=== PATIENT | female | born 1955 | race Caucasian/White ===

== ENCOUNTER 2023-03-21 07:05 | Outpatient (OUT) | payer OTHER, SELFPAY ==
[2023-03-21 07:49] LABS: Basophils Absolute Auto 0.1 10^3/uL (0.0-0.1); Basophils Percent Auto 1.4 % (0.2-2.0); Eosinophils Absolute Auto 0.2 10^3/uL (0.0-0.7); Eosinophils Percent Auto 4.2 % (0.9-7.0); Hematocrit 41.6 % (36.0-48.0); Immature Granulocytes Abs Auto 0.02 10^3/uL (0.00-0.03); Immature Granulocytes Pct Auto 0.4 % (0.0-0.5); Lymphocytes Absolute Auto 1.3 10^3/uL (1.2-3.8); Lymphocytes Percent Auto 26.7 % (20.5-60.0); Mean Corpuscular HGB Conc 33.7 g/dL (29.9-35.2); Mean Platelet Volume 9.4 fL (9.5-13.5); Monocytes Absolute Auto 0.5 10^3/uL (0.3-0.8); Monocytes Percent Auto 10.2 % (1.7-12.0); Neutrophils Absolute Auto 2.8 10^3/uL (1.4-6.5); Neutrophils Percent Auto 57.1 % (43.0-75.0); Platelet Count 211 10^3/uL (150-450); Red Blood Count 4.52 10^6/uL (4.20-5.40); Red Cell Distribution Width 13.4 % (11.0-15.0)
[2023-03-21 08:21] LABS: Microalbumin Urine Random <1.3 mg/dL (<=30.0)
[2023-03-21 08:23] LABS: Estimated Average Glucose 128 mg/dL; Glycohemoglobin A1C 6.1 % (4.5-6.2)
[2023-03-21 10:14] LABS: Alanine Aminotransferase 32 U/L (14-59); Albumin Globulin Ratio 1.1; Albumin Level 3.9 g/dL (3.4-5.0); Alkaline Phosphatase 102 U/L (46-116); Anion Gap 12.4; Aspartate Amino Transferase 17 U/L (15-37); BUN Creatinine Ratio 28.6; Bilirubin Total 0.6 mg/dL (0.2-1.0); Calcium 9.6 mg/dL (8.5-10.1); Carbon Dioxide 29.5 mmol/L (21.0-32.0); Chloride 103 mmol/L (98-107); Chol HDL Ratio 3.8; Cholesterol 252 mg/dL (<=200); Estimated GFR (African America >60 (>=60); Estimated GFR (Non-African Ame >60 (>=60); Globulin 3.5 g/dL; Glucose 122 mg/dL (74-106); HDL Cholesterol 66 mg/dL (40-60); Potassium 3.9 mmol/L (3.5-5.1); Sodium 141 mmol/L (136-145); Total Protein 7.4 g/dL (6.4-8.2); Triglycerides 127 mg/dL (<=150); VLDL CHOLESTEROL 25.4 mg/dL
== END 2023-03-21 07:06 | disposition home or self-care (01) ==
LOC: LAB 07:11
PROVIDERS: PCP Internal Medicine; Visit Provider Internal Medicine
DX: E11.618 Type 2 diabetes mellitus with other diabetic arthropathy (principal); E78.00 Pure hypercholesterolemia, unspecified; D68.59 Other primary thrombophilia
CPT/HCPCS: 36415; 80053; 80061; 82043; 83036; 85025

== ENCOUNTER 2023-09-21 08:47 | Outpatient (OUT) | payer OTHER, SELFPAY ==
[2023-09-21 09:14] LABS: Creatinine Urine Random 89.32 mg/dL (20.00-300.00); Microalbum Creatinine Ratio Ur 14.5 mg/g (0.0-29.9); Microalbumin Urine Random <1.3 mg/dL (<=30.0)
[2023-09-21 09:20] LABS: Basophils Absolute Auto 0.1 10^3/uL (0.0-0.1); Basophils Percent Auto 1.4 % (0.2-2.0); Eosinophils Absolute Auto 0.2 10^3/uL (0.0-0.7); Eosinophils Percent Auto 3.6 % (0.9-7.0); Hematocrit 37.2 % (36.0-48.0); Hemoglobin 12.3 g/dL (12.0-16.0); Immature Granulocytes Abs Auto 0.02 10^3/uL (0.00-0.03); Immature Granulocytes Pct Auto 0.4 % (0.0-0.5); Lymphocytes Absolute Auto 1.6 10^3/uL (1.2-3.8); Lymphocytes Percent Auto 29.2 % (20.5-60.0); Mean Corpuscular HGB Conc 33.1 g/dL (29.9-35.2); Mean Corpuscular Hemoglobin 30.8 pg (26.7-34.0); Mean Platelet Volume 9.6 fL (9.5-13.5); Monocytes Absolute Auto 0.6 10^3/uL (0.3-0.8); Monocytes Percent Auto 10.6 % (1.7-12.0); Neutrophils Absolute Auto 3.1 10^3/uL (1.4-6.5); Neutrophils Percent Auto 54.8 % (43.0-75.0); Platelet Count 222 10^3/uL (150-450); Red Cell Distribution Width 13.4 % (11.0-15.0); White Blood Count 5.6 10^3/uL (4.0-11.0)
[2023-09-21 09:53] LABS: Alanine Aminotransferase 33 U/L (14-59); Albumin Globulin Ratio 1.1; Albumin Level 3.7 g/dL (3.4-5.0); Alkaline Phosphatase 113 U/L (46-116); Anion Gap 10.5; Aspartate Amino Transferase 17 U/L (15-37); BUN Creatinine Ratio 21.2; Bilirubin Total 0.6 mg/dL (0.2-1.0); Calcium 9.7 mg/dL (8.5-10.1); Carbon Dioxide 29.6 mmol/L (21.0-32.0); Chloride 105 mmol/L (98-107); Estimated GFR (African America >60 (>=60); Estimated GFR (Non-African Ame >60 (>=60); Globulin 3.4 g/dL; Glucose 117 mg/dL (74-106); Potassium 4.1 mmol/L (3.5-5.1); Sodium 141 mmol/L (136-145); Total Protein 7.1 g/dL (6.4-8.2)
[2023-09-21 10:02] LABS: Chol HDL Ratio 3.5; Cholesterol 235 mg/dL (<=200); HDL Cholesterol 68 mg/dL (40-60); Thyroid Stimulating Hormone 1.129 uIU/mL (0.358-3.740); Triglycerides 114 mg/dL (<=150); VLDL CHOLESTEROL 22.8 mg/dL
[2023-09-21 10:36] LABS: Estimated Average Glucose 128 mg/dL; Glycohemoglobin A1C 6.1 % (4.5-6.2)
== END 2023-09-21 08:48 | disposition home or self-care (01) ==
LOC: LAB 08:47
PROVIDERS: PCP Internal Medicine; Visit Provider Internal Medicine
DX: E11.69 Type 2 diabetes mellitus with other specified complication (principal); E78.2 Mixed hyperlipidemia
CPT/HCPCS: 36415; 80053; 80061; 82043; 82570; 83036; 84443; 85025

== ENCOUNTER 2024-03-26 06:33 | Outpatient (OUT) | payer OTHER, SELFPAY ==
[2024-03-26 06:45] LABS: Basophils Absolute Auto 0.1 10^3/uL (0.0-0.1); Basophils Percent Auto 1.6 % (0.2-2.0); Eosinophils Absolute Auto 0.3 10^3/uL (0.0-0.7); Eosinophils Percent Auto 5.4 % (0.9-7.0); Hematocrit 40.6 % (36.0-48.0); Hemoglobin 13.9 g/dL (12.0-16.0); Immature Granulocytes Abs Auto 0.01 10^3/uL (0.00-0.03); Immature Granulocytes Pct Auto 0.2 % (0.0-0.5); Lymphocytes Absolute Auto 1.5 10^3/uL (1.2-3.8); Lymphocytes Percent Auto 25.2 % (20.5-60.0); Mean Corpuscular HGB Conc 34.2 g/dL (29.9-35.2); Mean Corpuscular Hemoglobin 31.2 pg (26.7-34.0); Mean Platelet Volume 9.1 fL (9.5-13.5); Monocytes Absolute Auto 0.6 10^3/uL (0.3-0.8); Monocytes Percent Auto 9.8 % (1.7-12.0); Neutrophils Absolute Auto 3.4 10^3/uL (1.4-6.5); Neutrophils Percent Auto 57.8 % (43.0-75.0); Platelet Count 192 10^3/uL (150-450); Red Blood Count 4.46 10^6/uL (4.20-5.40); Red Cell Distribution Width 14.6 % (11.0-15.0); White Blood Count 5.8 10^3/uL (4.0-11.0)
[2024-03-26 07:08] LABS: Estimated Average Glucose 126 mg/dL
[2024-03-26 07:17] LABS: Alanine Aminotransferase 39 U/L (14-59); Albumin Globulin Ratio 1.2; Albumin Level 3.7 g/dL (3.4-5.0); Alkaline Phosphatase 106 U/L (46-116); Anion Gap 13.8; Aspartate Amino Transferase 20 U/L (15-37); BUN Creatinine Ratio 14.9; Bilirubin Total 0.7 mg/dL (0.2-1.0); Calcium 9.3 mg/dL (8.5-10.1); Carbon Dioxide 27.2 mmol/L (21.0-32.0); Chloride 102 mmol/L (98-107); Chol HDL Ratio 3.5; Cholesterol 247 mg/dL (<=200); Estimated GFR (African America >60 (>=60); Estimated GFR (Non-African Ame >60 (>=60); Glucose 131 mg/dL (74-106); HDL Cholesterol 71 mg/dL (40-60); Sodium 139 mmol/L (136-145); Thyroid Stimulating Hormone 1.339 uIU/mL (0.358-3.740); Total Protein 6.7 g/dL (6.4-8.2); Triglycerides 120 mg/dL (<=150)
== END 2024-03-26 06:34 | disposition home or self-care (01) ==
LOC: LAB 06:33
PROVIDERS: PCP Internal Medicine; Visit Provider Internal Medicine
DX: E78.2 Mixed hyperlipidemia (principal); G72.0 Drug-induced myopathy; E11.69 Type 2 diabetes mellitus with other specified complication
CPT/HCPCS: 36415; 80053; 80061; 83036; 84443; 85025

== ENCOUNTER 2024-09-27 06:54 | Outpatient (OUT) | payer OTHER, SELFPAY ==
[2024-09-27 07:39] LABS: Estimated Average Glucose 131 mg/dL; Glycohemoglobin A1C 6.2 % (4.5-6.2)
[2024-09-27 07:40] LABS: Alanine Aminotransferase 36 U/L (14-59); Albumin Globulin Ratio 1.3; Alkaline Phosphatase 103 U/L (46-116); Anion Gap 12.1; Aspartate Amino Transferase 20 U/L (15-37); Bilirubin Total 0.9 mg/dL (0.2-1.0); Calcium 10.2 mg/dL (8.5-10.1); Carbon Dioxide 27.1 mmol/L (21.0-32.0); Chloride 105 mmol/L (98-107); Chol HDL Ratio 3.6; Cholesterol 264 mg/dL (<=200); Estimated GFR (African America >60 (>=60 mL/min/1.73m^2); Estimated GFR (Non-African Ame >60 (>=60 mL/min/1.73m^2); Globulin 3.2 g/dL; Glucose 136 mg/dL (74-106); HDL Cholesterol 73 mg/dL (40-60); Potassium 4.2 mmol/L (3.5-5.1); Sodium 140 mmol/L (136-145); Total Protein 7.2 g/dL (6.4-8.2); Triglycerides 115 mg/dL (<=150)
[2024-09-27 07:52] LABS: Creatinine Urine Random 176.03 mg/dL (20.00-300.00); Microalbum Creatinine Ratio Ur 7.3 mg/g (0.0-29.9); Microalbumin Urine Random <1.3 mg/dL (<=30.0)
== END 2024-09-27 06:55 | disposition home or self-care (01) ==
PROVIDERS: PCP Internal Medicine; Visit Provider Nurse Practitioner Adult Health
DX: K76.0 Fatty (change of) liver, not elsewhere classified (principal); E11.69 Type 2 diabetes mellitus with other specified complication; E78.2 Mixed hyperlipidemia
CPT/HCPCS: 36415; 80053; 80061; 82043; 82570; 83036

== ENCOUNTER 2024-10-30 06:31 | Outpatient (OUT) | payer OTHER, SELFPAY ==
[2024-10-30 09:28] LABS: Thyroid Stimulating Hormone 1.118 uIU/mL (0.358-3.740)
[2024-10-31 06:08] LABS: C-Reactive Protein, Cardiac 1.58 mg/L (0.00-3.00)
[2024-11-01 17:08] LABS: Lipoprotein (a) 9.1 nmol/L (<75.0)
== END 2024-10-30 06:32 | disposition home or self-care (01) ==
LOC: LAB 06:31
PROVIDERS: PCP Internal Medicine; Visit Provider Internal Medicine Cardiovascular Disease
DX: R93.1 Abnormal findings on diagnostic imaging of heart and coronary circulation (principal); Z82.49 Family history of ischemic heart disease and other diseases of the circulatory system; R07.89 Other chest pain; E78.00 Pure hypercholesterolemia, unspecified
CPT/HCPCS: 36415; 84443; 86140

== ENCOUNTER 2025-03-27 06:47 | Outpatient (OUT) | payer OTHER, SELFPAY ==
[2025-03-27 07:09] LABS: Hematocrit 42.5 % (36.0-48.0); Hemoglobin 14.9 g/dL (12.0-16.0); Immature Granulocytes Abs Auto 0.02 10^3/uL (0.00-0.03); Immature Granulocytes Pct Auto 0.4 % (0.0-0.5); Lymphocytes Absolute Auto 1.5 10^3/uL (1.2-3.8); Mean Corpuscular HGB Conc 35.1 g/dL (29.9-35.2); Mean Corpuscular Hemoglobin 32.3 pg (26.7-34.0); Mean Corpuscular Volume 92.2 fL (81.0-99.0); Platelet Count 229 10^3/uL (150-450); Red Blood Count 4.61 10^6/uL (4.20-5.40); White Blood Count 5.5 10^3/uL (4.0-11.0)
[2025-03-27 07:34] LABS: Alanine Aminotransferase 36 U/L (14-59); Albumin Globulin Ratio 1.3; Albumin Level 4.0 g/dL (3.4-5.0); Alkaline Phosphatase 106 U/L (46-116); Anion Gap 11.2; Aspartate Amino Transferase 14 U/L (15-37); Blood Urea Nitrogen 17.0 mg/dL (7.0-18.0); Calcium 9.8 mg/dL (8.5-10.1); Carbon Dioxide 31.1 mmol/L (21.0-32.0); Chloride 103 mmol/L (98-107); Cholesterol 252 mg/dL (<=200); Estimated GFR (African America >60 (>=60 mL/min/1.73m^2); Estimated GFR (Non-African Ame >60 (>=60 mL/min/1.73m^2); Globulin 3.2 g/dL; Glucose 119 mg/dL (74-106); HDL Cholesterol 74 mg/dL (40-60); Potassium 4.3 mmol/L (3.5-5.1); Sodium 141 mmol/L (136-145); Thyroid Stimulating Hormone 1.648 uIU/mL (0.358-3.740); Total Protein 7.2 g/dL (6.4-8.2); Triglycerides 104 mg/dL (<=150); VLDL CHOLESTEROL 20.8 mg/dL
== END 2025-03-27 06:48 | disposition home or self-care (01) ==
PROVIDERS: PCP Internal Medicine; Visit Provider Internal Medicine
DX: G72.0 Drug-induced myopathy (principal); T46.6X5A Adverse effect of antihyperlipidemic and antiarteriosclerotic drugs, initial encounter; Z79.899 Other long term (current) drug therapy; E78.2 Mixed hyperlipidemia; E11.69 Type 2 diabetes mellitus with other specified complication
CPT/HCPCS: 36415; 80053; 80061; 82043; 82570; 83036; 84443; 85025

== ENCOUNTER 2025-06-26 20:14 | Emergency (ER) | payer OTHER, SELFPAY ==
[2025-06-26] VITALS (20 sets, daily range): BP systolic 133–172; BP diastolic 77–95; PULSE 83–96; TEMP 36.8; O2SAT 95; BMI 26.7
--- OUTSIDE RECORDS SUMMARY | 2025-06-26 19:48 | XMS_ITS | Encounter Summary ---
Author Name [place] --, Shama Address [address] [place] [address] Organization [facility] Address [address] [place] [address] Medications * triamterene-hctz 37.5-25 mg capsule: * vitamin b12 1000 mcg tablet er: Take 1 tablet by mouth once daily * vitamin c 500 mg tablet: Take 1 tablet by mouth once daily * cinnamon 500 mg capsule: Take 1 capsule by mouth once daily * calcium acetate 667 mg tablet: Take 1 tablet by mouth once daily * biotin 04010 mcg tablet: Take 1 tablet by mouth once daily * ondansetron hcl 4 mg tablet: * fish oil concentrate 1000 mg capsule: Take 1 capsule by mouth once daily * aspirin low dose [address]: Take 1 tablet by mouth once daily * albuterol sulfate hfa 108 (90 base) mcg/act aerosol soln: Inhale 1-2 puffs by mouth every 4-6 hoursas needed * VALIUM 5 MG TABLET: Take 1 tablet by mouth once daily as needed for dizziness * meclizine hcl 25 mg tablet: take 1 tablet by mouth three times a day as needed for dizziness Allergies * Rosuvastatin * Pitavastatin * Ezetimibe * Bempedoic Acid * Flagyl * Sulfa Antibiotics Assessment and Plan ASSESSMENT SUMMARY DEDRA SLATER is a 70 year old woman seen today by [facility] for [facility]. [facility] Visits are designed to target a specific urgent or non-urgentclinical concern. See below for teaching and instruction given regarding specific diagnoses. Memberverbalized understanding to all. Patient Currently Located in their home state of [place], YES DIAGNOSIS SUMMARY* R00.2- Palpitations HISTORY OF PRESENT ILLNESS Chief Complaint: Left shoulder pain and heart racing/palpitations. HPI: - 70-year-old woman located in [place] contacting [facility] for acute symptoms.- Reports heart racing and feeling her heartbeat/pounding in her teeth, along with left shoulder pain.- Unable to check blood pressure because she cannot find her home cuff; she and her household have searched and think it may have been lent out.- Support: available and will drive her to the emergency department.- No additional medical history, medications, allergies, or other history discussed during this call. New Symptoms: - Onset/progression: Not specified.- Description: Left shoulder pain; rapid heartbeat/palpitations; sensation of pounding/heartbeat in teeth.- Severity/duration/timing: Not specified.- Aggravating/alleviating factors: Not discussed.- Home monitoring: Unable to obtain blood pressure due to missing cuff.- Prior treatments/interventions: None discussed. Review of Systems: - Cardiovascular: Positive for palpitations/heart racing.- Musculoskeletal: Positive for left shoulder pain. Vital Signs: No vitals obtained during the call; patient unable to check blood pressure due to missing cuff. Please indicate how this visit was conducted: Audio-Only Physical Exam: Audio Only - no acute distress, speech and mentation clear Dx:R00.2- Palpitations Assessment/Impression: Acute palpitations with left shoulder pain. Unable to obtain blood pressure at home due to missing cuff. Given symptoms (heart racing and sensation of pounding in teeth) and left shoulder pain, clinician expressed concern for a possible cardiac event and noted that women may present atypically; recommended urgent evaluation with EKG in the emergency department. Possible elevated blood pressure suspected based on symptoms, but not measured. Plan of Care: - Immediate evaluation in the emergency department for EKG and further workup.- Offered to call an ambulance; patient declined and will go by private vehicle with now.- Advised to reach back out after ED visit if needs arise. Patient Education and Counseling: - Explained that women can present with atypical cardiac symptomsand that a cardiac event cannot be ruled out via phone visit.- Advised need for an EKG right away and to go to the emergency department immediately.- Offered ambulance transport; patient declined.- Instructed to contact the team after the ED visit if further assistance is needed. 2024 APPOINTMENT CPT CODE Please indicate how this visit was conducted: Audio-Only Please select the reason why an audio-only visit is being performed: Unable to perform Video Less than 10 minutes
--- NOTE | 2025-06-26 20:24 | ECG_ITS ---
[facility] Test Date: 2025-06-26 Pat Name: DEDRA SLATER Department: Room: - Gender: Female Senior Systems Developer: : 1955 Requested By: [id number] Order Number: [id number] [place] MD: MARY ZAYAS M.D. Measurements Intervals Cherry Rate: 91 P: 58 DC: 172 QRS: 37 QRSD: 90 T: 32 QT: 358 QTc: 407 Interpretive Statements 1100 Sinus rhythm 9110 normal ECG No previous ECG available for comparison Electronically Signed On 06-27-2025 18:30:10 EST by MARY ZAYAS M.D.
--- NOTE | 2025-06-26 20:38 | ED_ITS ---
HPI HPI - General Adult General Chief complaint: Chest Pain Stated complaint: SHOULDER PAIN, POSS RAPID HEART RATE Time Seen by Provider: 06/26/25 20:16 Source: patient Mode of arrival: walk-in Limitations: no limitations History of Present Illness HPI narrative: This 70-year-old female presents for evaluation of left-sided shoulder pain. The patient states she has bad biceps tendons and has chronic shoulder pain. Recently the pain has become increasingly more severe. She states that today she took her dog to the groomer and when she got home she had pain in her shoulder that went up into her neck. It also radiates across her chest. She states her teeth have been throbbing recently. She does not have any shortness of breath dizziness or diaphoresis. She has not had any syncopal events. She also states that for about 1 month she has had nausea anytime she eats. She has not had any weight loss. She denies any abdominal pain or back pain. She has no lower extremity pain or swelling. She has no history of cardiac disease, diabetes, hypertension and she is not a smoker. She is a social drinker and admits to having 1 glass of wine earlier in the evening. She states that she called the triage nurse for her insurance company and was referred to the emergency department. She states at home her pulse was 103 and her blood pressure was elevated. In the emergency department her pulse was 157/95 and came down to 133/77 without any intervention. After my evaluation the patient remembered that she had a DVT and PE in the . Related Data Allergies Allergy/AdvReac Type Severity Reaction Status Date / Time Sulfa (Sulfonamide Allergy Mild Rash Verified 06/26/25 20:18 Antibiotics) Review of Systems ROS Status of ROS 10 or more systems reviewed and unremark able except as noted in history and below PFSH PFSH Social History Little interest or pleasure in doing things: not at all Feeling down, depressed, or hopeless: not at all Exam Narrative Exam Narrative: Vital signs and Nursing Notes reviewed: Patient is afebrile with a normal pulse, blood pressure is elevated 157/95 but came down to 133/77 during my exam, she is not hypoxic with pulse ox of 95% on room air General: Awake, alert, oriented, no acute distress, lying comfortably on the stretcher HEENT: Normocephalic atraumatic, mucous membranes are moist and pink, eyes are clear, normal conjunctiva, vision is grossly intact, posterior pharynx is normal in appearance. Neck: Supple, non tender, no pulsatile masses Chest: Lungs are clear to auscultation with good air entry, there is no wheezing rhonchi or rales appreciated no accessory muscle use, patient is speaking in complete sentences-no chest wall tenderness to palpation CVS: Regular rate and rhythm S1-S2, no murmurs rubs or gallops, pulses are brisk and equal bilaterally ABD: Soft, nondistended, nontender, no rebound guarding or rigidity, bowel sounds are normal, no pulsatile masses appreciated Extremities: Moving all extremities, no lower extremity tenderness or swelling noted, negative Homans' sign, pulses are brisk and equal bilaterally-no reproducible shoulder tenderness anteriorly or posteriorly Skin: Normal in appearance without rash,pallor, petechiae or purpura Neuro: No focal deficits Constitutional Vital Signs, click to edit/add: Last Vital Signs Temp 98.2 F 06/26/25 20:18 Pulse 90 06/26/25 22:40 Resp 19 06/26/25 22:40 BP 136/88 06/26/25 22:30 Pulse Ox 95 06/26/25 20:19 O2 Del Method Room Air 06/26/25 20:18 Course Vital Signs Vital signs: Vital Signs Temperature 98.2 F 06/26/25 20:18 Pulse Rate 92 H 06/26/25 20:18 Respiratory Rate 18 06/26/25 20:18 Blood Pressure 157/95 H 06/26/25 20:18 Pulse Oximetry 95 06/26/25 20:18 Oxygen Delivery Method Room Air 06/26/25 20:18 Temperature 98.2 F 06/26/25 20:18 Pulse Rate 90 06/26/25 22:40 Respiratory Rate 19 06/26/25 22:40 Blood Pressure 136/88 06/26/25 22:30 Pulse Oximetry 95 06/26/25 20:19 Oxygen Delivery Method Room Air 06/26/25 20:18 Medical Decision Making MDM Narrative Medical decision making narrative: This 70-year-old female, non-smoker with a 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 She states that after taking her dog to the groomer today and coming home the pain was worse. She does not have any chest pain at rest, shortness of breath, dizziness or diaphoresis. She has had nausea recently with food intake. She has not lost any weight. She denies any abdominal pain or back pain. She has a remote history of a DVT/PE related to childbirth when she was much younger. She had called the insurance triage nurse who referred her to the emergency department. Upon arrival and EKG was ordered that is a sinus rhythm at 90 bpm with no acute findings. She does not have any chest wall tenderness or shoulder tenderness. Her abdomen is soft, lungs are clear. There is no lower extremity tenderness or swelling. She had taken aspirin prior to arrival and was given a dose of Zofran for her nausea. Cardiac workup was ordered. She has a normal white count and stable hemoglobin. Elec trolytes and liver function tests are normal the mildly elevated glucose however the patient was not NPO. She has a normal troponin and normal D-dimer. Two- view chest x-ray and x-ray of the left shoulder was ordered. Chest x-ray shows a hiatal hernia which she was aware that she had and has had for an extended period time and x-ray of the left shoulder shows degenerative changes in the shoulder and humeral head. The results of the labs and x-rays were discussed with the patient. She was given a copy of her shoulder x-ray report. I offered to refer her to outpatient orthopedics but she declined stating she will follow- up with her family physician. She was encouraged to return to the emergency department for any worsening chest pain shortness of breath dizziness diaphoresis or any concerns. Her heart score is 2 based on her age only- Lab Data Lab results reviewed: Yes I reviewed the patient's lab results Labs: Lab Results 06/26/25 Range/Units 20:44 WBC 5.9 (4.0-11.0) 10^3/uL RBC 4.28 (4.20-5.40) 10^6/uL Hgb 13.7 (12.0-16.0) g/dL Hct 39.2 (36.0-48.0) % MCV 91.6 (81.0-99.0) fL MCH 32.0 (26.7-34.0) pg MCHC 34.9 (29.9-35.2) g/dL RDW 12.7 (11.0-15.0) % Plt Count 212 (150-450) 10^3/uL MPV 9.4 L (9.5-13.5) fL Neut % (Auto) 53.3 (43.0-75.0) % Lymph % (Auto) 30.1 (20.5-60.0) % [place] % (Auto) 10.9 (1.7-12.0) % Eos % (Auto) 3.9 (0.9-7.0) % Baso % (Auto) 1.5 (0.2-2.0) % Neut # (Auto) 3.1 (1.4-6.5) 10^3/uL Lymph # (Auto) 1.8 (1.2-3.8) 10^3/uL [place] # (Auto) 0.6 (0.3-0.8) 10^3/uL Eos # (Auto) 0.2 (0.0-0.7) 10^3/uL Baso # (Auto) 0.1 (0.0-0.1) 10^3/uL Abs Immat Gran (auto) 0.02 (0.00-0.03) 10^3/uL Imm/Tot Granulo (auto) 0.3 (0.0-0.5) % D-Dimer <0.19 (<=0.59) mg/L FEU Sodium 139 (136-145) mmol/L Potassium 3.8 (3.5-5.1) mmol/L Chloride 104 (98-107) mmol/L Carbon Dioxide 27.6 (21.0-32.0) mmol/L Anion Gap 11.2 BUN 14.0 (7.0-18.0) mg/dL Creatinine 0.55 (0.55-1.02) mg/dL Est GFR ( Amer) >60 (>=60 mL/min/1.73m^2) Est GFR (Non-Af Amer) >60 (>=60 mL/min/1.73m^2) BUN/Creatinine Ratio 25.5 Glucose 169 H (74-106) mg/dL Calcium 9.6 (8.5-10.1) mg/dL Total Bilirubin 0.3 (0.2-1.0) mg/dL AST 15 (15-37) U/L ALT 38 (14-59) U/L Alkaline Phosphatase 116 (46-116) U/L Troponin I High Sens <4.0 L (4.0-51.3) pg/mL Total Protein 6.5 (6.4-8.2) g/dL Albumin 3.6 (3.4-5.0) g/dL Globulin 2.9 g/dL Albumin/Globulin Ratio 1.2 Lipase 30.0 (16.0-77.0) U/L ECG Data Attestation: I personally reviewed and interpreted this ECG as follows: (Normal sinus rhythm at 90 bpm, normal axis, normal intervals, no acute ST segment elevation or T wave inversion) Discharge Plan Discharge Chief Complaint: Chest Pain Clinical Impression: Chest pain, non-cardiac, Arthritis, shoulder region Patient Disposition: Home, Self-Care Time of Disposition Decision: 22:44 Condition: Good Print Language: Portuguese Instructions: Noncardiac Chest Pain (ED), Arthritis (ED) Referrals: RENÉE GE [Physician, Family Practice] - 1 week
[2025-06-26 20:54] LABS: Hematocrit 39.2 % (36.0-48.0); Hemoglobin 13.7 g/dL (12.0-16.0); Immature Granulocytes Abs Auto 0.02 10^3/uL (0.00-0.03); Immature Granulocytes Pct Auto 0.3 % (0.0-0.5); Lymphocytes Absolute Auto 1.8 10^3/uL (1.2-3.8); Mean Corpuscular HGB Conc 34.9 g/dL (29.9-35.2); Mean Corpuscular Hemoglobin 32.0 pg (26.7-34.0); Mean Corpuscular Volume 91.6 fL (81.0-99.0); Platelet Count 212 10^3/uL (150-450); Red Blood Count 4.28 10^6/uL (4.20-5.40); White Blood Count 5.9 10^3/uL (4.0-11.0)
[2025-06-26 21:17] LABS: Alanine Aminotransferase 38 U/L (14-59); Albumin Globulin Ratio 1.2; Albumin Level 3.6 g/dL (3.4-5.0); Alkaline Phosphatase 116 U/L (46-116); Anion Gap 11.2; Aspartate Amino Transferase 15 U/L (15-37); Blood Urea Nitrogen 14.0 mg/dL (7.0-18.0); Calcium 9.6 mg/dL (8.5-10.1); Carbon Dioxide 27.6 mmol/L (21.0-32.0); Chloride 104 mmol/L (98-107); Estimated GFR (African America >60 (>=60 mL/min/1.73m^2); Estimated GFR (Non-African Ame >60 (>=60 mL/min/1.73m^2); Globulin 2.9 g/dL; Glucose 169 mg/dL (74-106); Lipase 30.0 U/L (16.0-77.0); Potassium 3.8 mmol/L (3.5-5.1); Sodium 139 mmol/L (136-145); Total Protein 6.5 g/dL (6.4-8.2)
--- OUTSIDE RECORDS SUMMARY | 2025-06-26 21:21 | XMS_ITS | Clinical Summary ---
Author Organization [facility] Address [address] [place] [address] Phone Care Team Providers Care Eight Arm Operator Name Role Phone Amador Lindsey DO Primary Care Provider Allergies Active AllergyReactionsCriticalityNoted FlzhJvpmzmqsBnsdutl-Evs-Tsd Reductase YxjcjowkriQlfpaot38/11/2025Sulfa (Sulfonamide Antibiotics)XbyeLfo0510/23/2024 Medications MedicationSigDispense QuantityRefillsLast FilledStart DateEnd DateStatus aspirin 81 mg EC tablet Take 1 tablet (81 mg) by mouth once daily.Active cholecalciferol (Vitamin D-3) 5,000 Units tablet Take 1 tablet (5,000 Units) by mouth once daily.Active cyanocobalamin (Vitamin B-12) 1,000 mcg tablet Take 1 tablet (1,000 mcg) by mouth once daily.Active diazePAM (Valium) 5 mg tablet Take 1 tablet (5 mg) by mouth 2 times a day as needed.07/23/2024ctive ibuprofen (Motrin) capsule if needed.Active meclizine (Antivert) 25 mg tablet Take 1 tablet (25 mg) by mouth 3 times a day as needed.07/23/2024ctive ondansetron (Zofran) 4 mg tablet Take 1 tablet (4 mg) by mouth every 6 hours if needed.01/13/2024ctive albuterol 90 mcg/actuation inhaler Inhale 2 puffs every 4 hours if needed.04/07/2021ctive Active Problems ProblemNoted DateDiagnosed DateBMI 27.0-27.9,adult10/23/2024Former smoker 10/23/2024gatston coronary artery calcium score greater than 2015810/23/2024 Encounter to establish care10/23/2024Family history of ischemic heart disease 10/23/2024Hiatal wdsctx2310/23/20245899Oindiktshwufkb64/11/2025hest pain, atypical 10/23/2024 Family History Medical HistoryRelationNameCommentsDiabetesBrotherHeart diseaseBrotherHeart diseaseFatherDiabetesMotherHeart attackMotherRelationNameStatusCommentsBrother FatherMother Social History Tobacco UseTypesPacks/DayYears UsedDateSmoking Tobacco: FormerCigarettes Smokeless Tobacco: Never Tobacco Cessation:Counseling Given: Not Answered Alcohol UseStandard Drinks/WeekCommentsYes0 (1 standard drink = 0.6 oz pure alcohol)wine, occasional beerCommentsUnknownSex and Gender Information ValueDate RecordedSex Assigned at BirthNot on fileLegal WhmHitbsc85/26/2022 2:35 AM ESTGender IdentityNot on fileSexual OrientationNot on file Last Filed Vital Signs Vital SignReadingTime TakenCommentsBlood Ztofkebv789/78010/23/2024 9:48 AM EDT Zgyoy6497/11/2025 9:45 AM SZCHlghqlhqrqi18.7 ??C (98.1 ??F)10/08/2020 12:47 PM ESTRespiratory Fhab766202/25/2021 12:47 PM EDTOxygen Saturation--Inhaled Oxygen Concentration--Tskqad07.4 kg (153 lb)10/23/2024 9:45 AM IPMTmtuuh020 cm (5' 3 ) 10/23/2024 9:45 AM EDTBody Mass Index27. 9:45 AM EDT Plan of Treatment Health MaintenanceDue DateLast DoneCommentsCT Njsgjqjsjilj1955Colonoscopy 1955FIT1955Lipid Panel1955Medicare Annual Wellness Visit (AWV) 1955 1033Vwcbglkrmrewe1955MMR Vaccines (1 of 1 - Standard series) 1956Diabetes Cwbnxccvx59/10/1973Hepatitis C Thxioincl16/10/1973Hepatitis A Vaccines (1 of 2 - Risk 2-dose series)1974Pneumococcal Vaccine (1 of 2 - PCV)1974DTaP/Tdap/Td Vaccines (1 - Tdap)1977RSV High Risk: (Elderly (60+) or Population) (1 - Risk 50-74 years 1-dose series)2005 Zoster Vaccines (1 of 2)2005Hepatitis B Vaccines (1 of 3 - Risk 3-dose series)2015Influenza Vaccine (#1), 05/17/2022, 04/30/2020, Additional history existsCOVID-19 Vaccine (2024- season) , 09/08/2020, 08/11/2020Colorectal Cancer Screening 05/04/2025FIT-DNA (Cologuard)5005/04/20227059Irrlxuggp33, 07/03/2024, 05/20/2023, Additional history existsBone Density Scan07/03/2026 07/03/2024, 04/12/2022HIB VaccinesAged OutNo longer eligible based on patient's age to complete this topicHPV VaccinesAged OutNo longer eligible based on patient's age to complete this topicIPV VaccinesAged OutNo longer eligible based on patient's age to complete this topicMeningococcal VaccineAged OutNo longer eligible based on patient's age to complete this topicRotavirus VaccinesAged Out No longer eligible based on patient's age to complete this topic Insurance Care Teams Team MemberRelationshipSpecialtyStart DateEnd Date Amador Lindsey DO [address] [place] [address] [facility]03/16/20
--- OUTSIDE RECORDS SUMMARY | 2025-06-26 21:21 | XMS_ITS | Clinical Summary ---
Author Organization [facility] Address [address] [place] [address] Care Team Providers Care Education Program Manager Name Role Phone Amador Lnidsey DO Unavailable [phone] Roberto Bone MD Primary Care Provider [phone] Allergies Active AllergyReactionsCriticalityNoted DateCommentsBempedoic Acid-Ezetimibe 02/03/2023 Other Reaction(s): nausea and myalgia Awknrvwhx48/15/2022 Other Reaction(s): Naussea Nirmatrelvir-XgxwwxedfLrysuwsu78/05/4629Rdgiwkfutrst73/22/2023 Other Reaction(s): nausea and vomiting Vogfglybmddi15/15/2022 Other Reaction(s): Nausea and vomiting Sulfa GqsgoutvxpfUfkuRuv36/08/2020 Other Reaction(s): Unknown Medications MedicationSigDispense QuantityRefillsLast FilledStart DateEnd DateStatus Ibuprofen capsule IbuprofenActive aspirin 81 MG EC tablet Take 81 mg by mouth 1 (one) time.Active Cinnamon 500 MG tablet OrallyActive cyanocobalamin (Vitamin B-12) 1000 MCG tablet Take 1,000 mcg by mouth in the morning.Active triamcinolone (Kenalog) 0.1 % ointment Apply topically 2 (two) times a day.Active cholecalciferol (Vitamin D-3) 125 MCG (5000 UT) tablet Take 5,000 Units by mouth in the morning.Active albuterol HFA 90 mcg/act inhaler Indications:Asthma, exercise induced (HCC)Inhale 2 puffs every 4 (four) hours if needed for wheezing 18 g 4Active ondansetron (Zofran) 4 MG tablet Indications:NauseaTake 1 tablet (4 mg) by mouth every 6 (six) hours if needed for nausea or vomiting 30 tablet ctive meclizine (Antivert) 25 MG tablet Indications:Benign paroxysmal positional vertigo of right earTake 1 tablet (25 mg) by mouth 3 (three) times a day as needed for dizziness 60 tablet ctive diazePAM (Valium) 5 MG tablet Indications:AnxietyTake 1 tablet (5 mg) by mouth 2 (two) times a day as needed for anxiety 30 tablet 07/23/2024ctive Multiple Vitamins-Minerals (WOMENS 50+ MULTI VITAMIN PO) Take 1 tablet by mouth DailyActive Active Problems ProblemNoted DateDiagnosed DateSensorineural hearing loss (SNHL) of right ear with unrestricted hearing of left ear03/27/2025Vitamin D ndsadbdnym85/13/2025 Primary osteoarthritis involving multiple vgtlqs4703/27/2025Facet arthropathy, yvigtj1609/28/2024Moderate persistent asthma with acute vrzylojmqwpr34/06/2024 Statin hddndakz96/12/2024hronic pain of both rpcqjqaqp97/22/2023Hiatal hernia 02/03/2023Metabolic dysfunction-associated steatotic liver disease (MASLD) 01/31/2023ERD (gastroesophageal reflux disease)01/31/2023Mixed hyperlipidemia 01/31/20234550Eaxlhnzlae83/19/2023 Resolved Problems ProblemNoted DateDiagnosed DateResolved DateChest painOE (dyspnea on exertion)/Medicare annual wellness visit, cqccbuxefg43/08/202308/CP (advance care planning)/ Achilles idgxvxzfft37sthma, exercise phdevxy5801/31/2023 03/20/2024symmetrical hearing loss/enign paroxysmal positional vertigo of right ear/IFG (impaired fasting glucose)/ain in left ankle and joints of left foot12/28/2022 03/27/2024 Encounters DateTypeDepartmentCare FvboGzlrapyzajg97/29/2025Results Follow-Up [facility] [address] [place] [address] Danny Davalos NP Cologuard?? colon cancer okxbzauxh54/14/2025 9:30 AM EDTOffice Visit [facility] [address] [place] [address] Danny Davalos NP Mixed hyperlipidemia (Primary Dx); Metabolic dysfunction-associated steatotic liver disease (MASLD); Moderate persistent asthma with acute exacerbation (HCC); Vitamin D deficiency; Gastroesophageal reflux disease without esophagitis; Statin myopathy; Medicare annual wellness visit, subsequent; ACP (advance care planning); Colon cancer screening; Breast cancer screening by mammogram; Medication management; Moczqdgopkf93/14/3356Tccopp47/13/2025linisync Result Encounter [facility] Unsolicited Amador Lindsey DO from Last 3 Months Immunizations ImmunizationAdministration DatesNext DueInfluenza, High Dose Seasonal, Preservative Free05/17/2022Influenza, Seasonal, Quadrivalent, Adjuvanted 06/02/2023 Family History Medical HistoryRelationNameCommentsDiabetesBrotherHeart diseaseBrotheropen heart surgeryDiabetes type IIChildCOPDFatherThroat cancerFatherDiabetesMother HypertensionMotherStrokeMotherBreast cancerOtherMaternal Great AuntRelationName StatusCommentsBrotherDeceasedChildAlive2 sons, 1 daughterFatherDeceasedMother DeceasedOtherSisterAlive Social History Tobacco UseTypesPacks/DayYears UsedDateSmoking Tobacco: FormerCigarettes 08/15/1967 - 08/15/1969Passive Smoke Exposure: PastSmokeless Tobacco: Never Tobacco Cessation:Counseling Given: Not Answered Alcohol UseStandard Drinks/WeekCommentsYes1 (1 standard drink = 0.6 oz pure alcohol)coffee, tea:1-2 cups per dayAUDIT-CAnswerDate RecordedQ1: How often do you have a drink containing alcohol?Monthly or less03/20/2024Q2: How many drinks containing alcohol do you have on a typical day when you are drinking?1 or 2 03/20/2024Q3: How often do you have six or more drinks on one occasion?Never 4PHQ-2AnswerDate RecordedPatient Health Questionnaire-2 Score0 03/28/2025CommentsNoSex and Gender InformationValueDate RecordedSex Assigned at BirthNot on fileLegal RtgEmyfnq13/15/2023 6:58 PM EDTGender Identity Dldrut9303/20/2024 1:42 PM EDTSexual OrientationNot on file Last Filed Vital Signs Vital SignReadingTime TakenCommentsBlood Vafkbjai573/7608 9:41 AM EDT Ovqvu150403/28/2025 9:41 AM EDTTemperature--Respiratory Rate--Oxygen Sosiixlywl32% 03/28/2025 9:41 AM EDTInhaled Oxygen Concentration--Peujbm31 kg (150 lb) 03/28/2025 9:41 AM BURGrdbfv894.5 cm (5' 2 )03/28/2025 9:41 AM EDTBody Mass Index27.44003/28/2025 9:41 AM EDT Plan of Treatment DateTypeDepartmentCare Team (Latest Contact Info)Cgkrilnznbt24/21/2025 10:30 AM ESTAncillary Procedure [facility] [address] [place] [address] 10/03/2025 9:30 AM ESTOffice Visit [facility] [address] [place] [address] Health MaintenanceDue DateLast DoneCommentsCT Ssqmsroozhvw1955Colonoscopy 1955FIT1955FOBT1955 3374Gelrmfsbvbgje1955Pneumococcal Vaccine: 65+ Years (1 of 2 - PCV)1974COVID-19 Vaccine ( - 2024- season) 5109/29/2020, 09/08/2020, 08/11/2020Influenza Vaccine (#1)2025 06/02/2023, 2Diabetes: Hemoglobin A1C/, 09/27/2024, 03/26/2024, Additional history tnlyokAamqxrdfl88, 05/20/2023, 05/10/2022, Additional history existsDiabetes: Urine Protein Qmvyjktot59/13/2026 09/27/2024, 09/21/2023, 09/17/2022, Additional history existsDiabetes: Retinopathy Nthgsypdn00, 10/25/2023, 09/15/2023Medicare Annual Wellness (AWV)/olorectal Cancer Iojqeiclk55/25/2028FIT-DNA , 05/04/2022, 05/04/2022, Additional history exists Procedures Procedure NamePriorityDate/TimeAssociated DiagnosisCommentsLAB COLOGUARD?? COLON CANCER VKLJVBNxeitbv24/25/2025 6:00 AM EDT Colon cancer screening ALL THYROID STIM YVURXXMXmyroab80/13/2025 6:56 AM EDT ALL LIPID PROFILE (FASTING)Vfldjbc2603/27/2025 6:56 AM EDT [facility] CMP (CMP) (FOR [facility]OTE [facility] USE)Knmnbgq9503/27/2025 6:56 AM EDT MLR HEMOGLOBIN V2FWgpcffi16/13/2025 6:56 AM EDT ALL CBC WITH AUTO DKKGGtzitfc58/13/2025 6:56 AM EDT TB[facility] MICROALB CREAT RATIO ABHCDXPosofly54/13/2025 6:48 AM EDT BI MAMMOGRAM SCREENING TOMOSYNTHESIS SSSCCKNAVXjgvqjh43/19/2024 11:53 AM EST Encounter for screening mammogram for malignant neoplasm of breast HEMOGLOBIN A1C WITH TCFAlavcov91/07/2024 11:42 AM EDT Type 2 diabetes mellitus with other specified complication, without long-term current use of insulin (HCC) DIABETIC RETINOPATHY SCREENING - OU - BOTH PHXKArnhypn97/12/2024 11:42 AM EDT MICROALBUMIN / CREATININE URINE IZIRLFanjgol76/07/2024 10:15 AM ESTfrom Last 3 Months or Most Recently Relevant to Health Maintenance Results * Cologuard?? colon cancer screening (05/09/2025 6:00 AM EDT)ComponentValueRef RangeTest MethodAnalysis TimePerformed AtPathologist SignatureNONINV COLON CA DNA+OCC BLD SCRN STL-RRDBxbbzwxrEkddqpvn05/28/2025 1:44 AM EDTEXVideolicious (CLIA #:[id number])Comment: The Cologuard (TM) test was performed on this specimen. NEGATIVE TEST RESULT. A negative Cologuard result indicates a low likelihood that a colorectal cancer (CRC) or advanced adenoma (adenomatous polyps with more advanced pre-malignant features) is present. The chance that a person with a negative Cologuard test has a colorectal cancer is less than 1 in 1500 (negative predictive value >99.9%) or has an advanced adenoma is less than 5.3% (negative predictive value 94.7%). These data are based on a prospective cross-sectional study of 10,000 individuals at average risk for colorectal cancer who were screened with both Cologuard and colonoscopy. (Alyssa Edward et al, N Engl J Med 2014;370(14):6232-0247) The normal value (reference range) for this assay is negative. COLOGUARD RE-SCREENING RECOMMENDATION: Periodic colorectal cancer screening is an important part ofpreventive healthcare for asymptomatic individuals at average risk for colorectal cancer. Followinga negative Cologuard result, the [place] [employer] and U.S. Multi-Society Task Force screening guidelines recommend a Cologuard re-screening interval of 3 years. References: [place] [employer] Guideline for Colorectal Cancer Screening: https://www.cancer.or g/cancer/btqev-vbiyti-mufwqt/fttpztsuh-bprzvbxkx-eibtbwq/acs-recommendations.htm kacie; Cornel LOWERY, Alfredo ALEGRE, Will CHANCE, Colorectal Cancer Screening: Recommendations for Physicians and Patients from the U.S. Multi-Society Task Force on Colorectal Cancer Screening , Am J Gastroenterology 2017; 112:7588-9219. TEST DESCRIPTION: Composite algorithmic analysis of stool DNA-biomarkers with hemoglobin immunoassay. ?? Quantitative values of individual biomarkers are not reportable and are not associated with individual biomarker result reference ranges. Cologuard is intended for colorectal cancer screening ofadults of either sex, 45 years or older, who are at average-risk for colorectal cancer (CRC). Cologuard has been approved for use by the U.S. FDA. The performance of Cologuard was established in a cross sectional study of average-risk adults aged 50-84. Cologuard performance in patients ages 45 to 49 years was estimated by sub-group analysis of near-age groups. Colonoscopies performed for a positive result may find as the most clinically significant lesion: colorectal cancer [4.0%], advanced adenoma (including sessile serrated polyps greater than or equal to 1cm diameter) [20%] or non- advanced adenoma [31%]; or no colorectal neoplasia [45%]. These estimates are derived from a prospective cross-sectional screening study of 10,000 individuals at average risk for colorectal cancer who were screened with both Cologuard and colonoscopy. (Alyssa Edward et al, N Engl J Med 2014;370(14):5313-8748.) Cologuard may produce a false negative or false positive result (no colorectal cancer or precancerous polyp present at colonoscopy follow up). A negative Cologuard test result does not guarantee the absence of CRC or advanced adenoma (pre-cancer). The current Cologuard screening interval is every 3 years. ([place] [employer] and U.S. Multi-Society Task Force). Cologuard performance data in a 10,000 patient pivotal study using colonoscopy as the reference method can be accessed at the following location: www.[employer].com/results. Additional description of the Cologuard test process, warnings and precautions can be found at www.[employer] Gamesrd.com. Specimen (Source)Anatomical Location / LateralityCollection Method / Volume Collection TimeReceived TimeStool specimen (specimen)05/09/2025 6:00 AM EDT 05/10/2025 10:14 AM EDT Narrative Authorizing ProviderResult TypeResult StatusMickenna Davalos [facility] ORDERABLESFinal ResultPerforming OrganizationAddressCity/State/ZIP CodePhone Number [facility] (CLIA #:[id number]) [place] [address], * MLR HEMOGLOBIN A1C (03/27/2025 6:56 AM EDT)ComponentValueRef RangeTest Method Analysis TimePerformed AtPathologist SignatureGLYCOHEMOGLOBIN A1C6.04.5 - 6.2 %TBHComment: ADA RECOMMENDED LIMIT 4.0 - 6.0 ADA THERAPEUTIC TARGET < 7.0 ACTION SUGGESTED > 7.0 ESTIMATED AVERAGE WORCYNP902pj/dLTBHSpecimen (Source)Anatomical Location / LateralityCollection Method / VolumeCollection TimeReceived Time03/27/2025 6:56 AM EDT03/27/2025 6:58 AM EDT Narrative [facility] - 03/27/2025 7:25 AM EDT Authorizing ProviderResult TypeResult StatusAmador Lindsey DOCLINISYNCFinal ResultPerforming OrganizationAddressCity/State/ZIP CodePhone Number [facility] * (ABNORMAL) [facility] CMP (CMP) (FOR [facility]OTE [facility] USE) (03/27/2025 6:56 AM EDT) ComponentValueRef RangeTest MethodAnalysis TimePerformed AtPathologist CqpduhssqPOHGDO644210 - 145 mmol/LTBHPOTASSIUM4.33.5 - 5.1 mmol/LTBHCHLORIDE 16207 - 107 mmol/LTBHCARBON OKDOHNC00.121.0 - 32.0 mmol/LTBHANION GAP11.2TBH NOMBNWA929(H)74 - 106 mg/dLTBHBLOOD UREA CFRAQISE28.07.0 - 18.0 mg/dLTBH CREATININE0.560.55 - 1.02 mg/dLTBHTBH EGFR-AF EGYPTIAN>60>=60 mL/min/1.73m 2 TBHTBH EGFR-NON AF EGYPTIAN>60>=60 mL/min/1.73m 2TBHBUN CREATININE RATIO30.4 TBHCALCIUM9.88.5 - 10.1 mg/dLTBHBILIRUBIN TOTAL0.70.2 - 1.0 mg/dLTBHASPARTATE AMINO NNRNKSBBFWT70(L)15 - 37 U/LTBHALANINE FZWYDMUHPQWSXQUO5790 - 59 U/LTBH ALKALINE YZJJLRSMNRO32821 - 116 U/LTBHTOTAL PROTEIN7.26.4 - 8.2 g/dLTBHALBUMIN LEVEL4.03.4 - 5.0 g/dLTBHGLOBULIN3.2g/dLTBHALBUMIN GLOBULIN RATIO1.3TBH Specimen (Source)Anatomical Location / LateralityCollection Method / Volume Collection TimeReceived Time03/27/2025 6:56 AM EDT03/27/2025 6:58 AM EDT Narrative [facility] - 03/27/2025 7:34 AM EDT Authorizing ProviderResult TypeResult StatusAmador Dengman LocallerLINISYNCFinal ResultPerforming OrganizationAddressty/State/ZIP CodePhone Number [facility] * ALL THYROID STIM HORMONE (03/27/2025 6:56 AM EDT)ComponentValueRef RangeTest MethodAnalysis TimePerformed AtPathologist SignatureTHYROID STIMULATING HORMONE1.6480.358 - 3.740 uIU/mLTBHSpecimen (Source)Anatomical Location / LateralityCollection Method / VolumeCollection TimeReceived Time03/27/2025 6:56 AM EDT03/27/2025 6:58 AM EDT Narrative [facility] - 03/27/2025 7:34 AM EDT Authorizing ProviderResult TypeResult [facility] CenterAmador Lindsey UNITED HOSPITALLINISYNCFinal ResultPerforming OrganizationAddressty/State/ZIP CodePhone Number [facility] * (ABNORMAL) ALL LIPID PROFILE (FASTING) (03/27/2025 6:56 AM EDT)ComponentValue Ref RangeTest MethodAnalysis TimePerformed AtPathologist Signature RUOIXAIYPXKLO090<=150 mg/pUSDZFBYECLAHGYN570(H)<=200 mg/dLTBHHDL TKZSLFAYVPN97 (H)40 - 60 mg/dLTBHComment: > or =60 mg/dl - LOW CARDIOVASCULAR RISK <40 mg/dl - HIGH CARDIOVASCULAR RISK LDL CHOLESTEROL YPKQFJFOFS660.0mg/dLTBHComment: <100 mg/dl OPTIMAL 100-129 mg/dl NEAR OR ABOVE OPTIMAL 130-159 mg/dl BORDERLINE HIGH 160-189 mg/dl HIGH >190 mg/dl VERY HIGH VLDL VGSGMLSAKUS94.8mg/dLTBHCHOL HDL RATIO3.4TBHComment: 3.3 - 4.4 ?? LOW RISK 4.4 - 7.1 ?? AVERAGE RISK 7.1 - 11.0 ??MODERATE RISK >11.0 HIGH RISK Specimen (Source)Anatomical Location / LateralityCollection Method / Volume Collection TimeReceived Time03/27/2025 6:56 AM EDT03/27/2025 6:58 AM EDT Narrative [facility] - 03/27/2025 7:34 AM EDT Authorizing ProviderResult TypeResult StatusAmador Lindsey DOCLINISYNCFinal ResultPerforming OrganizationAddressCity/State/ZIP CodePhone Number [facility] * (ABNORMAL) ALL CBC WITH AUTO DIFF (03/27/2025 6:56 AM EDT)ComponentValueRef RangeTest MethodAnalysis TimePerformed AtPathologist SignatureTBH WBC5.54.0 - 11.0 10 3/uLTBHTBH RBC4.614.20 - 5.40 10 6/uLTBHTBH HGB14.912.0 - 16.0 g/dLTBH TBH HCT42.536.0 - 48.0 %TBHTBH MCV92.281.0 - 99.0 fLTBHTBH MCH32.326.7 - 34.0 pgTBHTBH MCHC35.129.9 - 35.2 g/dLTBHTBH RDW13.111.0 - 15.0 %TBHTBH VZV871585 - 450 10 3/uLTBHTBH MPV9.4(L)9.5 - 13.5 fLTBHNEUTROPHILS PERCENT AUTO54.443.0 - 75.0 %TBHLYMPHOCYTES PERCENT AUTO27.520.5 - 60.0 %TBHMONOCYTES PERCENT AUTO 9.31.7 - 12.0 %TBHTBH EO %6.80.9 - 7.0 %TBHBASOPHILS PERCENT AUTO1.60.2 - 2.0 %TBHIMMATURE GRANULOCYTES PCT AUTO0.40.0 - 0.5 %TBHNEUTROPHILS ABSOLUTE AUTO 3.01.4 - 6.5 10 3/uLTBHLYMPHOCYTES ABSOLUTE AUTO1.51.2 - 3.8 10 3/uLTBH MONOCYTES ABSOLUTE AUTO0.50.3 - 0.8 10 3/uLTBHTBH EO #0.40.0 - 0.7 10 3/uLTBH BASOPHILS ABSOLUTE AUTO0.10.0 - 0.1 10 3/uLTBHIMMATURE GRANULOCYTES ABS AUTO 0.020.00 - 0.03 10 3/uLTBHSpecimen (Source)Anatomical Location / Laterality Collection Method / VolumeCollection TimeReceived Time03/27/2025 6:56 AM EDT 03/27/2025 6:58 AM EDT Narrative [facility] - 03/27/2025 7:10 AM EDT Authorizing ProviderResult TypeResult StatusAmador Lindsey DOCLINISYNCFinal ResultPerforming OrganizationAddressty/State/ZIP CodePhone Number [facility] * TB[facility] MICROALB CREAT RATIO RANDOM (03/27/2025 6:48 AM EDT)ComponentValueRef RangeTest MethodAnalysis TimePerformed AtPathologist SignatureMICROALBUMIN URINE RANDOM<1.3<=30.0 mg/dLTBHCREATININE URINE WVTLIQ04.2520.00 - 300.00 mg/dLTBHSpecimen (Source)Anatomical Location / LateralityCollection Method / VolumeCollection TimeReceived Time03/27/2025 6:48 AM EDT03/27/2025 6:58 AM EDT Narrative [facility] - 03/27/2025 7:25 AM EDT Authorizing ProviderResult TypeResult StatusAmador GONZALESLINISYNCFinal ResultPerforming OrganizationAddressty/State/ZIP CodePhone Number [facility] * Bilateral screening mammogram with tomosynthesis (07/03/2024 11:53 AM EST) Anatomical RegionLateralityModalityBreastBilateralMammographySpecimen (Source) Anatomical Location / LateralityCollection Method / VolumeCollection Time Received Time07/04/2024 11:50 AM EST Impressions 07/04/2024 11:57 AM EST Impression: No specific evidence of malignancy seen in either breast. BIRADS 2 - Benign DENSITY: The breasts are heterogeneously dense, which may obscure small masses FOLLOW-UP: Routine Screening Mamm ELECTRONICALLY SIGNED BY: Immanuel Berrios M.D. Narrative 07/04/2024 11:57 AM EST Examination: BI MAMMOGRAM SCREENING TOMOSYNTHESIS BILATERAL Clinical History: yearly Technique: Screening digital mammography study of both breasts was performed with 2-D and 3-D tomosynthesis imaging. Study was compared to the prior exam dated 05/20/2023. Findings: There is no evidence of interval dominant spiculated mass, grouped microcalcifications, or skin thickening which would be suggestive of malignancy. ?? Mild scattered benign-appearing calcifications on the right with a few benign- appearing calcifications on the left. Axillary lymph nodes are noted bilaterally. Procedure Note Immanuel Berrios MD - 07/04/2024 Examination: BI MAMMOGRAM SCREENING TOMOSYNTHESIS BILATERAL Clinical History: yearly Technique: Screening digital mammography study of both breasts wasperformed with 2-D and 3-D tomosynthesis imaging. Study was compared tothe prior exam dated 05/20/2023. Findings: There is no evidence of interval dominant spiculated mass,grouped microcalcifications, or skin thickening which would be suggestiveof malignancy. Mild scattered benign-appearing calcifications on the right with a fewbenign- appearing calcifications on the left. Axillary lymph nodes arenoted bilaterally. IMPRESSION: Impression: No specific evidence of malignancy seen in either breast. BIRADS 2 - Benign DENSITY: The breasts are heterogeneously dense, which may obscure smallmasses FOLLOW-UP: Routine Screening Mamm ELECTRONICALLY SIGNED BY: Immanuel Berrios M.D. Authorizing ProviderResult TypeResult StatusMickenna Davalos NPIMG BI PROCEDURES Final Result * Hemoglobin a1c with eag (03/26/2024 11:42 AM EDT)Specimen (Source)Anatomical Location / LateralityCollection Method / VolumeCollection TimeReceived Time BloodVenous blood specimen / Unknown Narrative Authorizing ProviderResult TypeResult StatusAmador Lindsey [facility] BLOOD ORDERABLESFinal ResultPerforming OrganizationAddressCity/State/ZIP CodePhone Number [facility] * Diabetic Retinopathy Screening - OU - Both Eyes (10/25/2023 11:42 AM EDT) Anatomical RegionLateralityModalityHeadOther Narrative Authorizing ProviderResult TypeResult StatusNoms Provider Unallocated ABISAI PHOTOGRAPHYFinal Result * Microalbumin / creatinine urine ratio (09/21/2023 10:15 AM EST)Specimen (Source)Anatomical Location / LateralityCollection Method / VolumeCollection TimeReceived TimeUrineUrine specimen obtained by clean catch procedure / Unknown Narrative Authorizing ProviderResult TypeResult StatusUnknown Practice ALAB URINE ORDERABLESFinal Result from Last 3 Months or Most Recently Relevant to Health Maintenance Insurance * Guarantor: Jeannie Ferreira TypeRelation to PatientDate of PhoneBilling AddressPersonal/UxstziIkfs1955 [phone] [address] Care Teams Team MemberRelationshipSpecialtyStart DateEnd Date Amador Lindsey DO [address] [place] [address] PCP - Devoted08/15/21 Roberto Bone MD [address] [place] [address] PCP - GeneralInternal Medicine03/05/25
--- OUTSIDE RECORDS SUMMARY | 2025-06-26 21:21 | XMS_ITS | Encounter Summary ---
Author Organization [facility] Address [address] [place] [address] Care Team Providers Care Director Smb Sales Name Role Phone Amador Lindsey DO Primary Care Provider + [phone] Amador Lindsey DO Unavailable [phone] Roberto Bone MD Primary Care Provider [phone] Encounter Details DateTypeDepartmentCare Team (Latest Contact Info)Ybfrcfbzbeu47/02/2024linisync Result Encounter [facility] Unsolicited Provider, Generic External Data Social History Tobacco UseTypesPacks/DayYears UsedDateSmoking Tobacco: FormerCigarettes 08/15/1967 - 08/15/1969Passive Smoke Exposure: PastSmokeless Tobacco: Never Alcohol UseStandard Drinks/WeekCommentsYes1 (1 standard drink = 0.6 oz pure alcohol)coffee, tea:1-2 cups per dayAUDIT-CAnswerDate RecordedQ1: How often do you have a drink containing alcohol?Monthly or less03/20/2024Q2: How many drinks containing alcohol do you have on a typical day when you are drinking?1 or 2 03/20/2024Q3: How often do you have six or more drinks on one occasion?Never 03/20/2024HQ-2AnswerDate RecordedPatient Health Questionnaire-2 Score0 03/28/2025CommentsNoSex and Gender InformationValueDate RecordedSex Assigned at BirthNot on fileLegal OvzJatvhv94/15/2023 6:58 PM EDTGender Identity Iqywfu3603/20/2024 1:42 PM EDTSexual OrientationNot on filedocumented as of this encounter Functional Status * Over the past 2 weeks, how often have you been bothered by any of the following problems?QuestionAnswerDate of AssessmentAuthorLittle interest or pleasure in doing thingsNot at all03/28/2025 9:00 AM [place] InterianoFeeling down, depressed, or hopelessNot at all03/28/2025 9:00 AM [place] Patient Health Questionnaire-2 [id number] 9:00 AM [place] Inter[place] documented as of this encounter Plan of Treatment DateTypeDepartmentCare Team (Latest Contact Info)Uzhpigqlcjk07/21/2025 10:30 AM ESTAncillary Procedure [facility] [address] [place] [address] 10/03/2025 9:30 AM ESTOffice Visit [facility] [address] [place] [address] documented as of this encounter Procedures Procedure NamePriorityDate/TimeAssociated DiagnosisCommentsCT CARDIAC CALCIUM BBTQDTN8205/16/2024 6:21 PM EDT documented in this encounter Results * CT CARDIAC CALCIUM SCORING (05/16/2024 6:21 PM EDT)Anatomical RegionLaterality ModalityRadiographic ImagingSpecimen (Source)Anatomical Location / Laterality Collection Method / VolumeCollection TimeReceived Time05/16/2024 6:21 PM EDT Addenda Addendum by Radiology, Radiologist, on 05/16/2024 8:20 PM EDT Interpreted By: ??Miguel Olvera, ADDENDUM: Technical: The following is to serve as an over-read for an unenhanced cardiac CT, to evaluate the extravascular structures. ?? Contiguous unenhanced CT sections are performed from level the hiwot to the upper abdomen. ? Findings: There is a 6 mm calcified granuloma in the left upper lobe. Subtle areas of subpleural scarring are identified in the lung bases. ?? Calcified lymph nodes are identified in the left hilum. There is no sign of pathologic lymph node enlargement. There is no pericardial or pleural effusion. ?? There is a small to moderate size hiatal hernia. Multiple calcified granuloma are identified in the liver and spleen. ?? The visualized osseous and soft tissue structures of the chest wall are intact. ? Impression: Old calcified granulomatous disease of the chest and abdomen. ?? Small to moderate size hiatal hernia. ?? The remaining extravascular structures are unremarkable. ?? Signed by: Miguel Olvera 05/16/2024 8:20 PM ?? -------- ORIGINAL REPORT -------- Dictation workstation: ?? [id number] Interpreted By: ??Miguel Mckeon, STUDY: CT CARDIAC SCORING WO IV CONTRAST; 05/16/2024 6:47 pm ?? INDICATION: Signs/Symptoms:.. ?? COMPARISON: None. ?? ACCESSION NUMBER(S): [id number] ?? ORDERING CLINICIAN: NORBERTO ORTIZ ?? TECHNIQUE: Using prospective ECG gating, CT scan of the coronary arteries was performed without intravenous contrast. Coronary calcium scoring ??was performed according to the method of Agatston. ?? CT Dose-Length Product (DLP): 65.1 mGy*cm CT Dose Reduction Employed: Yes, prospective gating, iterative reconstruction. ?? FINDINGS: The score and distribution of calcium in the coronary arteries is as follows: ?? LM 0 LAD 127 LCx 0 RCA 283 ?? Total 410 ?? The visualized ascending thoracic aorta measures 3.3 cm in diameter. The heart is normal in size. No pericardial effusion is present. ? The main pulmonary artery, right and left pulmonary artery are normal in size. ? IMPRESSION: 1. Coronary artery calcium score of 410*. 2. GRIJALVA 92nd percentile for age, gender, and race in asymptomatic patients. ? *Coronary Artery ??Agatston score ?? Score risk Very low 1-99 Mildly increased 100-299 Moderately increased >300 Moderate to severely increased >800 ?? South et al. JCCT 2016 (http://dx.doi.org/10.1016/j.jcct.2016.11.003) ?? GRIJALVA Percentile In general, greater than 75th percentile for age, gender, and race is considered to be a higher relative risk and higher lifetime risk condition. Greater than 75th percentile=moderate to severely increased relative risk irrespective of the score. Advise using GRJIALVA 10 year CHD risk calculator below for better discrimination of risk. ?? GRIJALVA 10-Year CHD Risk with Coronary Artery Calcification can be calcuate using link below https://www.grijalva-[email or web address]/MESACHDRisk/MesaRiskScore/RiskScore.aspx Concha. JACC 2015 (http://dx.doi.org/10.1016/j.j acc.2015.08.035) ?? Reading Release Specialist: Dr. Miguel Mckeon, Date: 05/16/2024 7:05 pm ?? Signed by: Miguel Mckeon 05/16/2024 7:06 PM Dictation workstation: ?? [id number] Narrative 05/16/2024 7:06 PM EDT Interpreted By: ??Miguel Mckeon, STUDY: CT CARDIAC SCORING WO IV CONTRAST; 05/16/2024 6:47 pm ?? INDICATION: Signs/Symptoms:.. ?? COMPARISON: None. ?? ACCESSION NUMBER(S): [id number] ?? ORDERING CLINICIAN: NORBERTO ORTIZ ?? TECHNIQUE: Using prospective ECG gating, CT scan of the coronary arteries was performed without intravenous contrast. Coronary calcium scoring ??was performed according to the method of Agatston. ?? CT Dose-Length Product (DLP): 65.1 mGy*cm CT Dose Reduction Employed: Yes, prospective gating, iterative reconstruction. ?? FINDINGS: The score and distribution of calcium in the coronary arteries is as follows: ?? LM 0 LAD 127 LCx 0 RCA 283 ?? Total 410 ?? The visualized ascending thoracic aorta measures 3.3 cm in diameter. The heart is normal in size. No pericardial effusion is present. ? The main pulmonary artery, right and left pulmonary artery are normal in size. ? IMPRESSION: 1. Coronary artery calcium score of 410*. 2. GRIJALVA 92nd percentile for age, gender, and race in asymptomatic patients. ? *Coronary Artery ??Agatston score ?? Score risk Very low 1-99 Mildly increased 100-299 Moderately increased >300 Moderate to severely increased >800 ?? South escalera al. JCCT 2016 (http://dx.doi.org/10.1016/j.jcct.2016.11.003) ?? GRIJALVA Percentile In general, greater than 75th percentile for age, gender, and race is considered to be a higher relative risk and higher lifetime risk condition. Greater than 75th percentile=moderate to severely increased relative risk irrespective of the score. Advise using GRIJALVA 10 year CHD risk calculator below for better discrimination of risk. ?? GRIJALVA 10-Year CHD Risk with Coronary Artery Calcification can be calcuate using link below https://www.grijalva-[email or web address]/MESACHDRisk/MesaRiskScore/RiskScore.aspx Bryanna escalera al. JACC 2015 (http://dx.doi.org/10.1016/j.j acc.2015.08.035) ?? Reading Release Specialist: Dr. Miguel Mckeon, Date: 05/16/2024 7:05 pm ?? Signed by: Miguel Mckeon 05/16/2024 7:06 PM Dictation workstation: ?? [id number] Procedure Note Radiology, Radiologist, MD - 05/16/2024 Interpreted By: Miguel Mckeon, STUDY: CT CARDIAC SCORING WO IV CONTRAST; 05/16/2024 6:47 pm INDICATION: Signs/Symptoms:.. COMPARISON: None. ACCESSION NUMBER(S): [id number] ORDERING CLINICIAN: NORBERTO ORTIZ TECHNIQUE: Using prospective ECG gating, CT scan of the coronary arteries was performed without intravenous contrast. Coronary calcium scoring was performed according to the method of Agatston. CT Dose-Length Product (DLP): 65.1 mGy*cm CT Dose Reduction Employed: Yes, prospective gating, iterative reconstruction. FINDINGS: The score and distribution of calcium in the coronary arteries is as follows: LM 0 LAD 127 LCx 0 RCA 283 Total 410 The visualized ascending thoracic aorta measures 3.3 cm in diameter. The heart is normal in size. No pericardial effusion is present. The main pulmonary artery, right and left pulmonary artery are normal in size. IMPRESSION: 1. Coronary artery calcium score of 410*. 2. GRIJALVA 92nd percentile for age, gender, and race in asymptomatic patients. *Coronary Artery Agatston score Score risk Very low 1-99 Mildly increased 100-299 Moderately increased >300 Moderate to severely increased >800 South et al. JCCT 2016 (http://dx.doi.org/10.1016/j.jcct.2016.11.003) GRIJALVA Percentile In general, greater than 75th percentile for age, gender, and race is considered to be a higher relative risk and higher lifetime risk condition. Greater than 75th percentile=moderate to severely increased relative risk irrespective of the score. Advise using GRIJALVA 10 year CHD risk calculator below for better discrimination of risk. GRIJALVA 10-Year CHD Risk with Coronary Artery Calcification can be calcuate using link below https://www.grijalva-nhlbi.org/MESACHDRisk/MesaRiskScore/RiskScore.aspx Concha. JACC 2014 (http://dx.doi.org/10.1016/j.j acc.2015.08.035) Reading Release Specialist: Dr. Miguel Mckeon, Date: 05/16/2024 7:05 pm Signed by: Miguel Mckeon 05/16/2024 7:06 PM Dictation workstation: [employer] Authorizing ProviderResult TypeResult StatusGeneric External Data ProviderIMG XR PROCEDURESEdited Result - Final documented in this encounter Visit Diagnoses Not on filedocumented in this encounter Additional Health Concerns AssessmentNoted TimePHQ-9 Depression Total Score: 9:45 AM EDT documented as of this encounter Care Teams Team MemberRelationshipSpecialtyStart DateEnd Date Amador Lindsey DO [address] [facility] [address] [place] [address] PCP - GeneralInternal Medicine Amador Lindsey DO [address] [place] [address] PCP - Devoted08/15/21 Roberto Bone MD [address] [place] [address] PCP - GeneralInternal Medicine03/05/25documented as of this encounter
--- NOTE | 2025-06-26 21:48 | XR_ITS ---
[address] [address] Patient Name: DEDRA SLATER MRN: [id number] date: 1955 Sex: F Assigned Patient Location: ER Current Patient Location: ER Accession/Order Number: [id number] Exam Date: 06/26/2025 21:50 Report Date: 06/26/2025 22:34 At the request of: AROLDO WILSON MD Procedure: XR shoulder LT min 2V 3 views left shoulder CLINICAL HISTORY: L shoulder pain COMPARISON: None FINDINGS: Wzcx-up-plkoptpk degenerative changes glenohumeral joint and acromioclavicular joint. Presumed osteophyte along the inferomedial aspect of the humeral head noted. No fracture or dislocation identified. IMPRESSION: No acute bony process. Degenerative changes.. Impression dictated by: Luisito Emmanuel M.D. 06/26/2025 10:34 PM Dictation Location: [place] [address] Electronically authenticated by: [id number] Y Date: 06/26/2025 22:34
--- NOTE | 2025-06-26 21:48 | XR_ITS ---
The [address] [address] Patient Name: DEDRA SLATER MRN: [id number] date: 1955 Sex: F Assigned Patient Location: ER Current Patient Location: ER Accession/Order Number: [id number] Exam Date: 06/26/2025 21:50 Report Date: 06/26/2025 22:35 At the request of: AROLDO WILSON MD Procedure: XR chest 2V PA AND LATERAL CHEST: CLINICAL HISTORY: CP COMPARISON: None FINDINGS: Unremarkable cardiomediastinal silhouette. Hiatal hernia with air fluid level noted. Lungs otherwise clear. No effusion or pneumothorax. XR/XR chest 2V IMPRESSION: NO ACUTE CARDIOPULMONARY ABNORMALITY. HIATAL HERNIA Impression dictated by: Luisito Emmanuel M.D. 06/26/2025 10:35 PM Dictation Location: [place] [address] Electronically authenticated by: [id number] Y Date: 06/26/2025 22:35
== END 2025-06-26 22:55 | disposition home or self-care (01) ==
PROVIDERS: Emergency Provider Emergency Medicine; PCP Internal Medicine
DX: M19.012 Primary osteoarthritis, left shoulder (principal); R07.89 Other chest pain; Z86.718 Personal history of other venous thrombosis and embolism; Z86.711 Personal history of pulmonary embolism; K44.9 Diaphragmatic hernia without obstruction or gangrene
CPT/HCPCS: 36415; 71046; 73030; 80053; 83690; 84484; 85025; 85378; 93005; 96374; 99285; J2405